=== PATIENT | female | born 1950 | race Caucasian/White ===

== ENCOUNTER 2023-05-24 12:12 | Inpatient (IN) | payer OTHER ==
[~2023-05-24] VITALS: Ht 154.9 cm; Wt 77.1 kg
[2023-05-24 12:15] VITALS: BP_SYST 113; PULSE 86; RESP 18; TEMP 98; O2SAT 96
[2023-05-24 13:26] LABS: BASOPHILS % (AUTO) 0.4 % (0.0-2.0); EOSINOPHILS % (AUTO) 0.4 % (0.0-4.0); HEMATOCRIT 43.6 % (36-48); LYMPHOCYTES # (AUTO) 1.2 K/uL (1.0-5.5); MEAN CORPUSCULAR HEMOGLOBIN 32 pg (27-31); MEAN CORPUSCULAR HGB CONC 35 % (32-36); MEAN CORPUSCULAR VOLUME 94 fL (79.0-98.0); MONOCYTES # (AUTO) 0.7 K/uL (0.0-1.0); MONOCYTES % (AUTO) 6.9 % (1.7-9.3); NEUTROPHILS # (AUTO) 8.7 K/uL (1.8-7.7); NEUTROPHILS % (AUTO) 81.3 % (40.0-70.0); PLATELET COUNT (AUTO) 362 K/uL (130-430); RED BLOOD CELL COUNT(AUTO) 4.66 MIL/uL (4.2-6.2); RED CELL DISTRIBUTION WIDTH 12.7 % (9.0-15.0); WHITE BLOOD COUNT (AUTO) 10.7 K/uL (4.8-10.8)
[2023-05-24 13:39] LABS: ANION GAP 8 (5-15); CALCIUM 8.9 mg/dL (8.4-11.0); CARBON DIOXIDE 31 mmol/L (23-29); CHLORIDE 98 mmol/L (98-107); CREATININE 1.15 mg/dL (0.55-1.30); GLUCOSE 115 mg/dL (74-106); POTASSIUM 4.4 mmol/L (3.5-5.1); SODIUM SERUM 137 mmol/L (136-145); UREA NITROGEN, BLOOD 18 mg/dL (8-21)
[2023-05-24 13:42] LABS: BILIRUBIN,URINE NEGATIVE (NEGATIVE); BLOOD, URINE 1+ (NEGATIVE); CLARITY/URINE CLEAR (CLEAR); COLOR,URINE YELLOW (YELLOW); GLUCOSE,URINE NEGATIVE (NEGATIVE); KETONES,URINE NEGATIVE (NEGATIVE); LEUKOCYTE ESTERASE ,URINE NEGATIVE (NEGATIVE); NITRITE, URINE NEGATIVE (NEGATIVE); PH,URINE 6.5 (5.0-8.0); PROTEIN URINE NEGATIVE (NEGATIVE); UROBILINOGEN,URINE 0.2 (0.2-1.0)
[2023-05-24 13:45] LABS: ALANINE AMINOTRANSFERASE 13 U/L (12-78); ALBUMIN 3.3 g/dL (3.4-4.8); ASPARTATE AMINOTRANSFERASE 16 U/L (10-37); BILIRUBIN,DIRECT 0.1 mg/dL (0.0-0.3); LIPASE 36 U/L (16-77); TOTAL BILIRUBIN 0.5 mg/dL (0.0-1.0); TOTAL PROTEIN, SERUM 8.3 g/dL (6.4-8.3)
[2023-05-24 13:51] LABS: RBC,URINE 0-3 /HPF (0-3)
[2023-05-24 13:52] LABS: BACTERIA,URINE MODERATE /HPF (None Seen); WBC,URINE 0-3 /HPF (0-3)
[2023-05-24] MEDS ORDERED: ATOR10TA68 PO (16:50)
[2023-05-24] MEDS ORDERED: LOSA1TAB40 PO (16:50)
[2023-05-24] MEDS ORDERED: LEVO25TA7 PO (16:50)
[2023-05-24] MEDS ORDERED: ASPI-1393 PO (16:50)
[2023-05-24] MEDS ORDERED: HYDR200T38 PO (16:50)
[2023-05-24] MEDS ORDERED: IPRATROPIUM BROM 0.5 MG/2.5 ML VIAL.NEB (ATROVENT) INH PRN (17:00)
[2023-05-24] MEDS ORDERED: IPRATROPIUM/ALBUTEROL SULFATE 3 ML AMPUL.NEB (DUONEB) INH PRN (17:00)
[2023-05-24] MEDS ORDERED: LORazepam 2 MG/ML VIAL IVP PRN (17:00)
[2023-05-24] MEDS ORDERED: ONDANSETRON HCL 4 MG/2 ML VIAL IVP PRN (17:00)
[2023-05-24] MEDS ORDERED: HYDROcodone/ACETAMIN 5-325 MG TAB (NORCO/ VICODIN) PO PRN (17:00)
[2023-05-24] MEDS: MEROPENEM 1 GM in NS 100 ML IV ONE (17:11)
[2023-05-24 17:12] VITALS: BP_SYST 103; PULSE 64; O2SAT 97
[2023-05-24] MEDS ORDERED: TRAM100T39 PO (19:18)
[2023-05-24] MEDS: HYDROcodone/ACETAMIN 10-325 MG TAB PO PRN (19:48)
[2023-05-24] MEDS: NACL 0.9% 1,000 ML IV SCH (21:10)
[2023-05-24] MEDS: ATORVASTATIN 10 MG TABLET PO SCH (21:13)
[2023-05-24] MEDS: ZOLPIDEM TARTRATE 5 MG TABLET PO PRN (21:13)
[2023-05-24] MEDS: HEPARIN SODIUM,PORCINE 5,000 UNITS/ML VIAL SUBCUT SCH (22:01)
[2023-05-25] VITALS (8 sets, daily range): BP systolic 109–132; PULSE 61–82; RESP 17–19; TEMP 98–98.4; O2SAT 95–100
[2023-05-25 07:37] LABS: ANION GAP 8 (5-15); CALCIUM 8.6 mg/dL (8.4-11.0); CARBON DIOXIDE 30 mmol/L (23-29); CHLORIDE 103 mmol/L (98-107); CREATININE 0.99 mg/dL (0.55-1.30); GLUCOSE 101 mg/dL (74-106); SODIUM SERUM 141 mmol/L (136-145); UREA NITROGEN, BLOOD 15 mg/dL (8-21)
[2023-05-25 07:56] LABS: BASOPHILS % (AUTO) 0.4 % (0.0-2.0); EOSINOPHILS # (AUTO) 0.1 K/uL (0.0-0.4); EOSINOPHILS % (AUTO) 1.1 % (0.0-4.0); HEMATOCRIT 41.7 % (36-48); HEMOGLOBIN 14.4 g/dL (12.0-16.0); LYMPHOCYTES # (AUTO) 1.6 K/uL (1.0-5.5); LYMPHOCYTES % (AUTO) 17.9 % (20.5-51.5); MEAN CORPUSCULAR HEMOGLOBIN 33 pg (27-31); MEAN CORPUSCULAR HGB CONC 35 % (32-36); MEAN CORPUSCULAR VOLUME 94 fL (79.0-98.0); MONOCYTES # (AUTO) 0.7 K/uL (0.0-1.0); NEUTROPHILS # (AUTO) 6.5 K/uL (1.8-7.7); NEUTROPHILS % (AUTO) 72.6 % (40.0-70.0); PLATELET COUNT (AUTO) 319 K/uL (130-430); RED BLOOD CELL COUNT(AUTO) 4.44 MIL/uL (4.2-6.2); RED CELL DISTRIBUTION WIDTH 12.5 % (9.0-15.0)
[2023-05-25] MEDS: LEVOTHYROXINE SODIUM 0.025 MG TABLET PO SCH (09:03)
[2023-05-25] MEDS ORDERED: TRAM50TA2 PO (10:33)
[2023-05-25] MEDS ORDERED: GABA-529 PO (10:36)
[2023-05-25] MEDS ORDERED: TRAM100T39 PO (10:36)
[2023-05-25] MEDS ORDERED: HYDR200T80 PO (10:36)
[2023-05-25 14:19] LABS: PROTHROMBIN TIME 10.3 SECS (9.5-12.5)
[2023-05-26 00:06] VITALS: BP_SYST 129; PULSE 69; RESP 16; TEMP 97.8; O2SAT 97
[2023-05-26 04:24] VITALS: O2SAT 100
[2023-05-26 07:35] VITALS: O2SAT 100
[2023-05-26 08:00] VITALS: BP_SYST 122; PULSE 79; RESP 16; TEMP 98.6; O2SAT 98
[2023-05-26] MEDS: APIXABAN 2.5 MG TABLET PO SCH (10:03)
[2023-05-26] MEDS ORDERED: APIX5TAB PO (11:14)
[2023-05-26] MEDS ORDERED: AZIT-93 PO (11:14)
[2023-05-26] MEDS ORDERED: GUAI-787 PO (11:14)
[2023-05-26 11:58] VITALS: BP_SYST 123; PULSE 16; RESP 16; TEMP 98.7; O2SAT 98
[2023-05-28 02:06] LABS: ANTITHROMBIN III ACTIVITY 107 % (75-135); ANTITHROMBIN III AG 114 % (72-124); PROTEIN S ACTIVITY 72 % (63-140)
[2023-05-28 17:06] LABS: PROTEIN C ANTIGEN 123 % (60-150)
== END 2023-05-26 14:05 | disposition home or self-care (01) | DRG 815 ==
LOC: SED 12:12 → SMU 17:24
PROVIDERS: ADMIT Internal Medicine; ATTEND Internal Medicine
DX: D73.5 Infarction of spleen (principal); D68.59 Other primary thrombophilia; E44.1 Mild protein-calorie malnutrition; I10 Essential (primary) hypertension; E03.9 Hypothyroidism, unspecified; E78.00 Pure hypercholesterolemia, unspecified; Z88.0 Allergy status to penicillin; Z88.2 Allergy status to sulfonamides; Z79.899 Other long term (current) drug therapy; Z79.82 Long term (current) use of aspirin; Z68.32 Body mass index [BMI] 32.0-32.9, adult
CPT/HCPCS: 36415; 71045; 80048; 80076; 81000; 81001; 81015; 81403; 81407; 81479; 83605; 83690; 84484; 85025; 85300; 85301; 85302; 85306; 85379; 85384; 85610; 85651; 85730; 86146; 86147; 87040; 87086; 93005; 93306; 94660; 94760; 99285; J1644; J2185; Q9967